=== PATIENT | female | born 1990 | race Two or more races ===

== ENCOUNTER 2020-03-23 22:31 | Emergency (ER) | payer MEDICAID ==
[~2020-03-23] VITALS: Ht 167.6 cm; Wt 131.0 kg
[2020-03-23] MEDS ORDERED: PENICILLIN G BENZATHINE 2,400,000 UNITS/4ML SYR IM ONE (23:15)
[2020-03-23] MEDS ORDERED: HYDROCODONE/ACETAMINOPHEN 5/325MG TABLET PO ONE (23:15)
[2020-03-23 23:30] VITALS: BP 108/66
[2020-03-23 23:46] LABS: HEMOGLOBIN. 11.7 g/dL (12.0-16.0)
[2020-03-23 23:50] LABS: CHLORIDE 110 mEq/L (98-107)
[2020-03-23 23:58] LABS: HCG SCREEN NEGATIVE
[2020-03-23 23:59] LABS: MEAN CORPUSCULAR HEMOGLOBIN 27.4 pg (28.0-32.0); MEAN CORPUSCULAR VOLUME 79.5 fL (81.0-99.0); MEAN PLATELET VOLUME 8.4 fl (7.4-10.4); PLATELET 298 x1000/uL (130-400); RED BLOOD CELL COUNT 4.28 mill/uL (4.2-5.4); RED CELL DISTRIBUTION WIDTH 21.7 % (11.6-14.6)
[2020-03-24 00:26] LABS: NUCLEATED RED BLOOD CELLS 2 /100 WBC; PLATELET ESTIMATE NORMAL
[2020-03-24 00:47] LABS: CLARITY URINE CLOUDY (CLEAR); COLOR URINE YELLOW (YELLOW); KETONES URINE NEGATIVE (NEGATIVE); LEUKOCYTE ESTERASE URINE TRACE (NEGATIVE); NITRITE URINE NEGATIVE (NEGATIVE); OCCULT BLOOD URINE NEGATIVE (NEGATIVE); PROTEIN URINE NEGATIVE (NEGATIVE); SPECIFIC GRAVITY URINE 1.015 (1.005-1.030); UROBILINOGEN URINE 0.2 E.U./dL (0.2-1.0)
== END 2020-03-24 01:13 | disposition left against medical advice (07) ==
LOC: ER 23:05
DX: D57.00 Hb-SS disease with crisis, unspecified (principal); I10 Essential (primary) hypertension; Z98.890 Other specified postprocedural states; Z90.81 Acquired absence of spleen; Z88.2 Allergy status to sulfonamides
CPT/HCPCS: 36415; 80053; 81003; 84703; 85025; 85044; 86592; 96372; 99283; J0561

== ENCOUNTER 2020-04-22 03:54 | Emergency (ER) | payer MEDICAID ==
[~2020-04-22] VITALS: Ht 167.6 cm; Wt 132.0 kg
[2020-04-22] MEDS ORDERED: PENICILLIN G BENZATHINE 2,400,000 UNITS/4ML SYR IM ONE (06:00)
[2020-04-22 06:29] VITALS: BP 118/86
== END 2020-04-22 06:30 | disposition home or self-care (01) ==
LOC: ER 04:20
DX: A53.0 Latent syphilis, unspecified as early or late (principal)
CPT/HCPCS: 96372; 99283; J0561

== ENCOUNTER 2020-05-16 10:50 | Emergency (ER) | payer MEDICAID ==
[~2020-05-16] VITALS: Ht 167.6 cm; Wt 131.0 kg
[2020-05-16] MEDS ORDERED: SODIUM CHLORIDE 0.9% 1,000 ML IV ONE (11:18)
[2020-05-16 12:07] LABS: HEMATOCRIT. 35.8 % (36.0-48.0); MEAN CORPUSCULAR HEMOGLOBIN 26.8 pg (28.0-32.0); MEAN CORPUSCULAR VOLUME 80.1 fL (81.0-99.0); MEAN PLATELET VOLUME 8.6 fl (7.4-10.4); PLATELET 334 x1000/uL (130-400); RED BLOOD CELL COUNT 4.47 mill/uL (4.2-5.4); RED CELL DISTRIBUTION WIDTH 21.1 % (11.6-14.6)
[2020-05-16 12:10] LABS: CHLORIDE 112 mEq/L (98-107)
[2020-05-16] MEDS ORDERED: KETOROLAC 15MG/ML VIAL IV ONE (12:15)
[2020-05-16 12:16] LABS: CLARITY URINE CLEAR (CLEAR); COLOR URINE YELLOW (YELLOW); KETONES URINE NEGATIVE (NEGATIVE); LEUKOCYTE ESTERASE URINE 1+ (NEGATIVE); NITRITE URINE NEGATIVE (NEGATIVE); OCCULT BLOOD URINE NEGATIVE (NEGATIVE); PH URINE 5.5 (4.5-8.0); PROTEIN URINE NEGATIVE (NEGATIVE); SPECIFIC GRAVITY URINE 1.015 (1.005-1.030); UROBILINOGEN URINE 0.2 E.U./dL (0.2-1.0)
[2020-05-16 12:44] LABS: CANNABINOID URINE SCREEN NEGATIVE (NEGATIVE); METHADONE URINE SCREEN NEGATIVE (NEGATIVE); OPIATES URINE SCREEN NEGATIVE (NEGATIVE); PHENCYCLIDINE URINE SCREEN NEGATIVE (NEGATIVE)
[2020-05-16] MEDS ORDERED: MORPHINE SULFATE 4 MG/ML CPJ (NOT FOR IM USE) IV STA (12:44)
[2020-05-16] MEDS ORDERED: ONDANSETRON HCL 4MG/2ML INJ IV STA (12:44)
[2020-05-16 12:45] LABS: *BARBITURATES SCREEN URINE NEGATIVE (NEGATIVE)
[2020-05-16 12:46] LABS: *BENZODIAZEPINES SCREEN URINE NEGATIVE (NEGATIVE)
[2020-05-16 12:49] LABS: *COCAINE SCREEN URINE NEGATIVE (NEGATIVE)
[2020-05-16 12:50] LABS: *AMPHETAMINES SCREEN URINE PRESUMTIVE POSITIVE (NEGATIVE)
[2020-05-16 13:20] LABS: PLATELET ESTIMATE NORMAL
[2020-05-16 13:45] VITALS: BP 125/68
== END 2020-05-16 14:00 | disposition home or self-care (01) ==
LOC: ER 11:00
DX: D57.00 Hb-SS disease with crisis, unspecified (principal); N30.90 Cystitis, unspecified without hematuria; I49.9 Cardiac arrhythmia, unspecified; T43.621A Poisoning by amphetamines, accidental (unintentional), initial encounter; Z88.8 Allergy status to other drugs, medicaments and biological substances; Z88.2 Allergy status to sulfonamides; Z90.81 Acquired absence of spleen; Z98.890 Other specified postprocedural states; Y92.9 Unspecified place or not applicable
CPT/HCPCS: 36415; 80053; 80305; 81003; 81025; 85025; 85044; 93005; 96361; 96374; 96375; 99284; J2270; J2405; J7030; J1885

== ENCOUNTER 2020-05-20 17:50 | Emergency (ER) | payer MEDICAID ==
[~2020-05-20] VITALS: Ht 167.6 cm; Wt 131.0 kg
[2020-05-20] MEDS ORDERED: KETOROLAC 30MG/ML VIAL IM ONE (18:45)
[2020-05-20 19:03] VITALS: BP 160/83
== END 2020-05-20 20:02 | disposition home or self-care (01) ==
LOC: ER 17:50
DX: S99.811A Other specified injuries of right ankle, initial encounter (principal); X58.XXXA Exposure to other specified factors, initial encounter; Y93.89 Activity, other specified; Y92.89 Other specified places as the place of occurrence of the external cause
CPT/HCPCS: 73610; 73630; 96372; 99284; J1885

== ENCOUNTER 2020-05-24 20:25 | Emergency (ER) | payer MEDICAID ==
[~2020-05-24] VITALS: Ht 167.6 cm; Wt 131.0 kg
[2020-05-24] MEDS ORDERED: IBUPROFEN 600MG TABLET PO ONE (22:30)
[2020-05-24 22:54] VITALS: BP 137/68
== END 2020-05-24 22:55 | disposition home or self-care (01) ==
LOC: ER 20:25
DX: M25.571 Pain in right ankle and joints of right foot (principal); I10 Essential (primary) hypertension; Z98.890 Other specified postprocedural states; Z88.8 Allergy status to other drugs, medicaments and biological substances; Z88.2 Allergy status to sulfonamides; Z90.81 Acquired absence of spleen; Z96.649 Presence of unspecified artificial hip joint
CPT/HCPCS: 99281; 99282

== ENCOUNTER 2020-05-30 20:50 | Emergency (ER) | payer MEDICAID ==
[~2020-05-30] VITALS: Ht 167.6 cm; Wt 130.0 kg
[2020-05-30 21:13] VITALS: BP 121/57
[2020-05-30] MEDS ORDERED: SODIUM CHLORIDE 0.9% 1,000 ML IV ONE (22:43)
[2020-05-30] MEDS ORDERED: KETOROLAC 30MG/ML VIAL IV STA (22:43)
== END 2020-05-30 23:49 | disposition left against medical advice (07) ==
LOC: ER 20:50
DX: R10.11 Right upper quadrant pain (principal); F16.10 Hallucinogen abuse, uncomplicated; Z88.8 Allergy status to other drugs, medicaments and biological substances; Z88.2 Allergy status to sulfonamides; Z79.899 Other long term (current) drug therapy
CPT/HCPCS: 71045; 99283; J7030

== ENCOUNTER 2020-06-11 13:04 | Emergency (ER) | payer MEDICAID ==
[~2020-06-11] VITALS: Ht 167.6 cm; Wt 131.0 kg
[2020-06-11 14:17] VITALS: BP 113/83
[2020-06-11 14:29] LABS: CHLORIDE 106 mEq/L (98-107)
[2020-06-11 14:49] LABS: HCG SCREEN NEGATIVE
[2020-06-11] MEDS ORDERED: KETOROLAC 30MG/ML VIAL IV ONE (15:00)
== END 2020-06-11 15:35 | disposition home or self-care (01) ==
LOC: ER 13:23
DX: R07.89 Other chest pain (principal); F16.10 Hallucinogen abuse, uncomplicated; Z88.2 Allergy status to sulfonamides; Z88.8 Allergy status to other drugs, medicaments and biological substances; Z98.890 Other specified postprocedural states
CPT/HCPCS: 36415; 71045; 80053; 83690; 83880; 84484; 84703; 85379; 93005; 96374; 99284; J1885

== ENCOUNTER 2020-06-24 05:54 | Emergency (ER) | payer MEDICAID ==
[~2020-06-24] VITALS: Ht 167.6 cm; Wt 13.0 kg
[2020-06-24] MEDS ORDERED: KETOROLAC 30MG/ML VIAL IV STA (06:37)
[2020-06-24] MEDS ORDERED: SODIUM CHLORIDE 0.9% 1,000 ML IV ONE (06:45)
[2020-06-24 08:35] LABS: HEMATOCRIT. 35.4 % (36.0-48.0); HEMOGLOBIN. 11.8 g/dL (12.0-16.0); MEAN CORPUSCULAR HEMOGLOBIN 26.9 pg (28.0-32.0); MEAN CORPUSCULAR VOLUME 80.5 fL (81.0-99.0); MEAN PLATELET VOLUME 7.9 fl (7.4-10.4); PLATELET 370 x1000/uL (130-400); RED BLOOD CELL COUNT 4.39 mill/uL (4.2-5.4); RED CELL DISTRIBUTION WIDTH 24.9 % (11.6-14.6)
[2020-06-24 08:38] LABS: CHLORIDE 110 mEq/L (98-107)
[2020-06-24 08:44] VITALS: BP 130/75
[2020-06-24 08:58] LABS: CLARITY URINE CLOUDY (CLEAR); COLOR URINE YELLOW (YELLOW); KETONES URINE NEGATIVE (NEGATIVE); LEUKOCYTE ESTERASE URINE 3+ (NEGATIVE); NITRITE URINE NEGATIVE (NEGATIVE); OCCULT BLOOD URINE NEGATIVE (NEGATIVE); PH URINE 6.5 (4.5-8.0); PROTEIN URINE NEGATIVE (NEGATIVE); SPECIFIC GRAVITY URINE 1.011 (1.005-1.030); UROBILINOGEN URINE 0.2 E.U./dL (0.2-1.0)
[2020-06-24 09:09] LABS: NUCLEATED RED BLOOD CELLS 2 /100 WBC
[2020-06-24 09:11] LABS: PLATELET ESTIMATE NORMAL
== END 2020-06-24 09:30 | disposition home or self-care (01) ==
LOC: ER 05:54
DX: D57.00 Hb-SS disease with crisis, unspecified (principal); N30.00 Acute cystitis without hematuria; I10 Essential (primary) hypertension; F17.210 Nicotine dependence, cigarettes, uncomplicated; Z98.890 Other specified postprocedural states; Z90.81 Acquired absence of spleen; Z96.642 Presence of left artificial hip joint; Z88.2 Allergy status to sulfonamides; Z88.8 Allergy status to other drugs, medicaments and biological substances
CPT/HCPCS: 36415; 80053; 81003; 85025; 85044; 87077; 87086; 87186; 93005; 96361; 96374; 99284; J1885; J7030

== ENCOUNTER 2020-07-12 13:38 | Emergency (ER) | payer MEDICAID ==
[~2020-07-12] VITALS: Ht 167.6 cm; Wt 134.0 kg
[2020-07-12 14:01] VITALS: BP 168/90
== END 2020-07-12 16:27 | disposition left against medical advice (07) ==
LOC: ER 13:38
DX: Z53.21 Procedure and treatment not carried out due to patient leaving prior to being seen by health care provider (principal)